=== PATIENT | male | born 1980 ===

== ENCOUNTER 2018-04-05 17:38 | Emergency (ER) | payer MEDICAID ==
[2018-04-05 18:01] VITALS: BP 158/104
--- NOTE | 2018-04-05 19:47 | ED ---
Upper Extremity Pain - HPI Summary HPI Summary: Patient complains of right shoulder pain after doing pushups 2-3 weeks ago. States pain has been progressive since. Pain described as intermittent, worse with movement, worse with lying on his right side. Denies loss of sensation or function distally, does complain of being unable to raise arm above shoulder level. Medical history is none. - History of Current Complaint Chief Complaint: EDShoulderClavicleInj Stated Complaint: RT SHOULDER PAIN Time Seen by Provider: 04/05/18 18:36 Hx Obtained From: Patient Mechanism Of Injury: Other Onset/Duration: Started Weeks Ago Severity Initially: Mild Severity Currently: Moderate Pain Location: Shoulder Character: Dull, Aching, Throbbing Aggravating Factor(s): Movement Alleviating Factor(s): Nothing Associated Signs & Symptoms: Positive: Negative - Allergies/Home Medications Home Medications: Home Medications NK [No Home Medications Reported] 04/05/18 [History Confirmed 04/05/18] PMH/Surg Hx/FS Hx/Imm Hx Endocrine/Hematology History: Denies: Hx Anticoagulant Therapy History: Denies: Hx Dialysis Neurological History: Denies: Hx CVA Infectious Disease History: No Infectious Disease History: Denies: Traveled Outside the [place] in Last 30 Days - Social History Alcohol Use: Weekly Substance Use Type: Reports: None Smoking Status (MU): Light Every Day Tobacco Smoker Review of Systems Constitutional: Negative Eyes: Negative ENT: Negative Cardiovascular: Negative Respiratory: Negative Gastrointestinal: Negative Genitourinary: Negative Positive: Arthralgia Skin: Negative Neurological: Negative Psychological: Normal All Other Systems Reviewed And Are Negative: Yes Physical Exam - Summary Physical Exam Summary: Extension and flexion of right shoulder intact to shoulder level. Abduction intact to shoulder level. Mildly tender to palpation on lateral right shoulder , and anterior right shoulder. No deformity, ecchymosis, swelling, erythema, extra warmth noted to right shoulder. Active flexion and extension of right elbow, right wrist, and right hand normal without indication of pain. PMS intact distally Triage Information Reviewed: Yes Vital Signs On Initial Exam: Initial Vitals Temp Pulse Resp BP Pulse Ox 97.8 F 71 18 158/104 97 04/05/18 17:59 04/05/18 17:59 04/05/18 17:59 04/05/18 17:59 04/05/18 17:59 Vital Signs Reviewed: Yes Appearance: Positive: Well-Appearing Skin: Positive: Warm Head/Face: Positive: Normal Head/Face Inspection Eyes: Positive: Normal Neck: Positive: Supple Respiratory/Lung Sounds: Positive: Clear to Auscultation Cardiovascular: Positive: Normal Abdomen Description: Positive: Nontender Musculoskeletal: Positive: Normal Neurological: Positive: Normal Psychiatric: Positive: Normal AVPU Assessment: Alert - [place] Coma Scale Best Eye Response: 4 - Spontaneous Best Motor Response: 6 - Obeys Commands Best Verbal Response: 5 - Oriented Coma Scale Total: 15 Diagnostics - Vital Signs Vital Signs Temp Pulse Resp BP Pulse Ox 04/05/18 17:59 97.8 F 71 18 158/104 97 - Laboratory Lab Statement: Any lab studies that have been ordered have been reviewed, and results considered in the medical decision making process. Course/Dx - Course Course Of Treatment: Patient complains of right shoulder pain after doing pushups 2-3 weeks ago. States pain has been progressive since. Pain described as intermittent, worse with movement, worse with lying on his right side. Denies loss of sensation or function distally, does complain of being unable to raise arm above shoulder level. Medical history is none. Patient from [facility], on Suboxone. Patient taking Mobic 7.5 MG twice a day for right shoulder pain. Extension and flexion of right shoulder intact to shoulder level. Abduction intact to shoulder level. Mildly tender to palpation on lateral right shoulder , and anterior right shoulder. No deformity, ecchymosis, swelling, erythema, extra warmth noted to right shoulder. Active flexion and extension of right elbow, right wrist, and right hand normal without indication of pain. PMS intact distally. Patient LWOT prior to imaging. - Diagnoses Provider Diagnoses: Right shoulder pain Discharge - Sign-Out/Discharge Documenting (check all that apply): Discharge/Admit/Transfer - Discharge Plan Condition: Stable Disposition: ELOPEMENT Referrals: No Primary Care Phys,NOPCP [Primary Care Provider] - - Billing Disposition and Condition Condition: STABLE Disposition: Elopement
== END 2018-04-05 19:23 | disposition left against medical advice (07) ==
LOC: ED 17:38
DX: M25.511 Pain in right shoulder (principal); F17.200 Nicotine dependence, unspecified, uncomplicated; Z53.21 Procedure and treatment not carried out due to patient leaving prior to being seen by health care provider
CPT/HCPCS: 99282